=== PATIENT | female | born 1970 | race Caucasian/White ===

== ENCOUNTER 2017-11-25 22:23 | Emergency (ER) | payer OTHER ==
[2017-11-25 22:32] VITALS: BP 161/88; TEMP 98.6; BMI 26.8
--- NOTE | 2017-11-25 22:40 | PDOC ---
History of Present Illness - General Chief Complaint: Chest Pain Stated Complaint: CHEST PAIN Time Seen by Provider: 11/25/17 22:37 History Source: Patient Exam Limitations: No Limitations - History of Present Illness Initial Comments: 11/25/17 22:53 This is a 47-year-old female who comes in complaining of chest pain. Patient appears to be very anxious and is noted to be hyperventilating here in the emergency room with a respiratory rate in the 30s. Patient's also somewhat tachycardic with her heart rate in the teens. Patient has a history significant for Hypertension, hyperlipidemia, diabetes, high cholesterol. Patient says pain began approximately 3:00 this afternoon. Patient denies any radiation to the pain. Patient said the pain is consistent with her pain that she gets with her exacerbation of her pulmonary fibrosis. Patient has history of similar pain in the past many times. Patient takes prednisone for her pulmonary fibrosis and is on 5 mg a day at this time. Patient denies any associated symptoms of nausea or diaphoresis. Pain is worse with respiration. Past medical history as per history of present illness PAST SURGICAL HISTORY: no significant history FAMILY HISTORY: no pertinant history SOCIAL HISTORY: Pt lives with family and is employed. MEDICATIONS: reviewed ALLERGIES: As per nursing notes Review of Systems General: No fevers or chills, no weakness, no weight loss HEENT: No change in vision. No sore throat,. No ear pain CardioVascular: +pleuritic chest pain + shortness of breath Respiratory:No cough, or wheezing. Gastrointestinal: no nausea, vomitting, diarrhea or constipation, No rectal bleeding Genitourinary: No dysuria, hematuria, or frequency Musculoskeletal: No joint or muscle pain or swelling Neurologic: No headache, vertigo, dizziness or loss of consciousness Psychiatric: nor depression Skin: No rashes or easy bruising Endocrine: no increased thirst or abnormal weight change Allergic: no skin or latex allergy All other systems reviewed and normal Exam: General: Well-nourished well-developed individual, no acute distress HEENT: Throat: Normal, tonsils normal, no erythema or exudate Neck: Supple, no meningeal signs, no lymphadenopathy Eyes::Pupils equal reactive and round, extraocular motion intact Chest: Nontender to palpation Cardiac: S1-S2 normal, regular rate and rhythm, no murmurs rubs or gallops Respiratory: Lungs clear to auscultation bilateral Abdomen: Soft, nondistended, normal bowel sounds, nontender to palpation diffusely Extremities: Warm, dry, no cyanosis, clubbing, or edema Skin: No rashes Neuro: Alert and oriented x3, CN II - XII intact, nonfocal exam with normal strength, normal sensation, normal reflexes, normal gait, Psych: Normal mood and affect EKG shows normal sinus rhythm at a rate of [address]-T wave changes otherwise normal EKG 11/26/17 00:17 Patient's blood work was normal including a normal CBC, chemistries showed a glucose of 227, and INR 2.6. Otherwise normal. Patient heart rate improved with some fluids and Xanax. Patient's respiratory rate came down to 18 with an O2 sat of 96. Patient discharged home will follow-up with her primary care doctor 11/26/17 00:17 Past History - Past Medical History Allergies/Adverse Reactions: Allergies Allergy/AdvReac Type Severity Reaction Status Date / Time shellfish derived Allergy Intermediate Hives Verified 07/26/15 13:26 hydroxychloroquine Allergy Unknown Verified 07/26/15 13:26 [Hydroxychloroquine] Home Medications: Ambulatory Orders Insulin Glargine,Hum.rec.anlog [Lantus Solostar PEN (NF)] 35 units SQ HS Lamotrigine [Lamictal Xr] 50 mg PO BID 07/26/15 Losartan Potassium [Cozaar -] 25 mg PO DAILY 07/26/15 Metformin HCl [Glucophage] 500 mg PO BID 07/26/15 Mirtazapine [Remeron -] 30 mg PO DAILY 07/26/15 Propranolol HCl 20 mg PO BID 07/26/15 Quetiapine Fumarate [Seroquel -] 12.5 mg PO TID 07/26/15 Simvastatin [Zocor -] 20 mg PO HS 07/26/15 Sitagliptin Phosphate [Januvia] 100 mg PO DAILY 07/26/15 Warfarin Sodium [Coumadin] 5 mg PO HS 07/26/15 CVA: Yes (1994, 2006, 2012) COPD: No Diabetes: Yes HTN: Yes Hypercholesterolemia: Yes Psychiatric Problems: Yes (DEPRESSION) - Surgical History Lung Surgery: Yes (RIGHT LUNG BIOPSY) - Suicide/Smoking/Psychosocial Hx Smoking Status: No Smoking History: Never smoked Have you smoked in the past 12 months: No Number of Cigarettes Smoked Daily: 0 Hx Alcohol Use: No Drug/Substance Use Hx: No Substance Use Type: None Hx Substance Use Treatment: No *Physical Exam - Vital Signs Last Vital Signs Temp Pulse Resp BP Pulse Ox 98.6 F 112 H 16 161/88 100 11/25/17 22:28 11/26/17 00:03 11/26/17 00:03 11/25/17 22:28 11/26/17 00:03 Heart Score/ECG Review - History History: Slightly suspicious - Electrocardiogram EKG: Normal - Age Age: 45-65 - Risk Factors Based on the list above the patient has:: >/=3 risk factors or Hx atherosclerotic disease - Troponin Troponin: </= normal limit - Score Heart Score - Total: 3 ED Treatment Course - LABORATORY CBC & Chemistry Diagram: 11/25/17 22:47 11/25/17 22:47 - ADDITIONAL ORDERS Additional order review: Laboratory Results 11/25/17 11/25/17 11/25/17 22:55 22:47 22:47 PT with INR 28.6 H INR 2.60 H Sodium Potassium Chloride Carbon Dioxide Anion Gap BUN Creatinine Creat Clearance w eGFR POC Glucometer [phone] Random Glucose Calcium Total Bilirubin AST ALT Alkaline Phosphatase Creatine Kinase 45 Troponin I Total Protein Albumin 11/25/17 11/25/17 22:47 22:47 PT with INR INR Sodium 133 L Potassium 4.0 Chloride 101 Carbon Dioxide 23 Anion Gap 9 BUN 10 Creatinine 0.6 Creat Clearance w eGFR > 60 POC Glucometer Random Glucose 227 H D Calcium 8.8 Total Bilirubin 0.5 AST 27 ALT 26 Alkaline Phosphatase 84 Creatine Kinase Troponin I < 0.03 Total Protein 7.6 Albumin 3.3 L 11/25/17 11/25/17 22:55 22:47 RBC 4.40 MCV 75.4 L MCHC 30.8 L RDW 18.6 H MPV 8.2 Neutrophils % 65.0 Lymphocytes % 23.8 Monocytes % 11.0 H Eosinophils % 0.0 Basophils % 0.2 POC Glucometer [phone] - RADIOLOGY Radiology Studies Ordered: Category Date Time Status CHEST X-RAY PORTABLE* [RAD] Stat Radiology 11/25/17 22:38 Taken - Medications Given in the ED: ED Medications Discontinued Medications Generic Name Dose Route Start Last Admin Trade Name Freq PRN Reason Stop Dose Admin Acetaminophen 1,000 mg 11/25/17 22:58 11/25/17 23:05 Tylenol - PO 11/25/17 22:59 1,000 mg ONCE ONE Administration Alprazolam 0.5 mg 11/25/17 22:51 11/25/17 23:03 Xanax PO 11/25/17 22:52 0.5 mg ONCE STA Administration Dexamethasone Sodium Phosphate 10 mg 11/25/17 23:05 11/25/17 23:08 Decadron Injection - IVPUSH 11/25/17 23:06 10 mg ONCE ONE Administration Sodium Chloride 1,000 mls @ 1,000 mls/hr 11/25/17 23:02 11/25/17 23:05 Normal Saline - IV 11/26/17 00:01 1,000 mls/hr .Q1H ONE Administration Ketorolac Tromethamine 30 mg 11/26/17 00:09 11/26/17 00:13 Toradol Injection - IVPUSH 11/26/17 00:10 30 mg ONCE ONE Administration *DC/Admit/Observation/Transfer Diagnosis at time of Disposition: Pulmonary fibrosis, Chest pain, pleuritic - Discharge Dispostion Disposition: HOME Condition at time of disposition: Stable Decision to Admit order: No - Referrals - Patient Instructions Additional Instructions: Return to the emergency department immediately with ANY new, persistent or worsening symptoms. Continue any medications as previously prescribed by your physician. You should follow up with your primary doctor as soon as possible regarding today's emergency department visit. . Please make sure your doctor reviews the results of your emergency evaluation. Thank you for coming to the Emergency Department today for your care. It was a pleasure to see you today. Please note that your evaluation is INCOMPLETE until you follow-up with your doctor. - Post Discharge Activity
[2017-11-25] MEDS ORDERED: ALPRAZolam 1 MG TABLET PO STA (22:51)
[2017-11-25] MEDS ORDERED: HEMOQUE TEST 1 EACH EACH ONE (22:51)
[2017-11-25] MEDS ORDERED: ACETAMINOPHEN 500 MG TABLET (FP) PO ONE (22:58)
[2017-11-25] MEDS ORDERED: ALPRAZolam 0.25 MG TABLET ONE (22:58)
[2017-11-25] MEDS ORDERED: SODIUM CHLORIDE 1,000 ML IV ONE (23:02)
[2017-11-25] MEDS ORDERED: ACETAMINOPHEN 500 MG TABLET (FP) ONE (23:04)
[2017-11-25] MEDS ORDERED: DEXAMETHASONE SOD PHOSPHATE 10 MG/1 ML VIAL IVPUSH ONE (23:05)
[2017-11-25] MEDS ORDERED: DEXAMETHASONE SOD PHOSPHATE 10 MG/1 ML VIAL ONE (23:06)
[2017-11-25 23:24] LABS: BASO % 0.2 % (0-2.0); HEMATOCRIT 33.1 % (32.4-45.2); HEMOGLOBIN 10.2 GM/dl (10.7-15.3); LYMPH % 23.8 % (8-40); MCH 23.2 pg (25.7-33.7); MCHC 30.8 g/dl (32.0-36.0); MEAN CELL VOLUME 75.4 fl (80-96); MEAN PLT VOLUME 8.2 fl (7.5-11.1); PLATELET COUNT 464 K/MM3 (134-434); RDW 18.6 % (11.6-15.6); WHITE BLOOD COUNT 6.6 K/mm3 (4.0-10.8)
[2017-11-25 23:28] LABS: ADD RBC MORPHOLOGY YES
[2017-11-25 23:29] LABS: INR 2.6 (0.82-1.09); PROTHROMBIN TIME (PATIENT) 28.6 SEC (10.2-13.0)
[2017-11-25 23:34] LABS: ALBUMIN 3.3 g/dl (3.5-5.0); ALK PHOS 84 U/L (32-92); ANION GAP 9 (8-16); BILIRUBIN,TOTAL 0.5 mg/dl (0.2-1.0); BLOOD UREA NITROGEN 10 mg/dl (7-18); CALCIUM 8.8 mg/dl (8.4-10.2); CHLORIDE 101 mmol/L (98-107); CO2 23 mmol/L (22-28); CREATININE 0.6 mg/dl (0.6-1.3); GLUCOSE,RANDOM 227 mg/dl (74-106); SGOT/AST 27 U/L (10-42); SGPT/ALT 26 U/L (10-40); SODIUM 133 mmol/L (136-145); TOT PROT 7.6 g/dl (6.4-8.3)
[2017-11-25 23:54] LABS: ANISOCYTOSIS 2+
[2017-11-25 23:55] LABS: OVALOCYTE 1+; TEAR DROP CELLS OCCASIONAL
[2017-11-26 00:03] VITALS: PULSE 112
[2017-11-26] MEDS ORDERED: KETOROLAC TROMETHAMINE 60 MG/2 ML VIAL IM ONE (00:05)
[2017-11-26] MEDS ORDERED: KETOROLAC TROMETHAMINE 30 MG/1 ML VIAL IVPUSH ONE (00:09)
[2017-11-26] MEDS ORDERED: KETOROLAC TROMETHAMINE 30 MG/1 ML VIAL ONE (00:09)
--- NOTE | 2017-11-27 08:55 | EKG ---
Test Reason : Blood Pressure : / mmHG Vent. Rate : 116 BPM Atrial Rate : 116 BPM P-R Int : 150 ms QRS Dur : 086 ms QT Int : 346 ms P-R-T Axes : 039 018 021 degrees QTc Int : 480 ms SINUS TACHYCARDIA CANNOT RULE OUT ANTERIOR INFARCT (CITED ON OR BEFORE 09-APR-2015) ABNORMAL ECG WHEN COMPARED WITH ECG OF 09-APR-2015 09:50, VENT. RATE HAS INCREASED BY 38 BPM Confirmed by SAE STUBBS, MARIA LUISA ([id number]) on 11/27/2017 8:55:38 AM Referred By: MD GALAVIZ Confirmed By:MARIA LUISA QUEVEDO MD
== END 2017-11-26 00:27 | disposition home or self-care (01) ==
LOC: FER 22:23
PROC: 3E033GC Introduction of Other Therapeutic Substance into Peripheral Vein, Percutaneous Approach (ICD-10-PCS; principal; 2017-11-25)
PROC: 3E0337Z Introduction of Electrolytic and Water Balance Substance into Peripheral Vein, Percutaneous Approach (ICD-10-PCS; 2017-11-25)
DX: R07.89 Other chest pain (principal); J84.10 Pulmonary fibrosis, unspecified; F32.9 Major depressive disorder, single episode, unspecified; I10 Essential (primary) hypertension; E11.9 Type 2 diabetes mellitus without complications; E78.00 Pure hypercholesterolemia, unspecified
CPT/HCPCS: 36415; 71045-TC-FY; 80053; 82550; 82962; 84484; 85025; 85610; 93005; 99282-25; J1100; J7030

== ENCOUNTER 2020-05-03 14:03 | Emergency (ER) | payer OTHER ==
[2020-05-03 14:31] VITALS: BP 146/80; PULSE 83; TEMP 98.6; BMI 27.1
[2020-05-03 14:48] LABS: MCHC 32.9 g/dl (32.0-36.0)
[2020-05-03 14:50] LABS: BASO % 0.3 % (0-2.0); HEMATOCRIT 39.2 % (32.4-45.2); HEMOGLOBIN 12.9 GM/dl (10.7-15.3); LYMPH % 11.3 % (8-40); MCH 28.4 pg (25.7-33.7); MEAN CELL VOLUME 86.4 fl (80-96); MEAN PLT VOLUME 8.7 fl (7.5-11.1); NEUT % 86.4 % (42.8-82.8); PLATELET COUNT 319 K/MM3 (134-434); RBC 4.54 M/mm3 (3.60-5.2); RDW 15.4 % (11.6-15.6); WHITE BLOOD COUNT 9.4 K/mm3 (4.0-10.8)
[2020-05-03 14:52] LABS: INR 4.18 (0.82-1.09); PROTHROMBIN TIME (PATIENT) 42.6 SEC (10.2-13.0)
[2020-05-03 15:26] LABS: ALBUMIN 3.6 g/dl (3.4-5.0); BILIRUBIN,TOTAL 0.4 mg/dl (0.2-1); CALCIUM 9.2 mg/dl (8.5-10); CREATININE 0.9 mg/dl (0.55-1.3); POTASSIUM 5.2 mmol/L (3.5-5.1); TOT PROT 7.5 g/dl (6.4-8.2)
== END 2020-05-03 15:43 | disposition home or self-care (01) ==
LOC: FER 14:03
DX: R79.1 Abnormal coagulation profile (principal); E11.9 Type 2 diabetes mellitus without complications
CPT/HCPCS: 36415; 80053; 81003; 82962; 85025; 85610; 99284-25